=== PATIENT | female | born 1985 | race Caucasian/White ===

== ENCOUNTER 2019-01-16 10:44 | Emergency (ER) | payer OTHER ==
--- NOTE | 2019-01-16 11:14 | RAD ---
RIGHT HAND THREE VIEWS: HISTORY: Injury. Right hand pain. FINDINGS: No acute fracture or dislocation is seen. There is cortical/subcortical focal sclerosis in the dista l radial cortex, which has a benign appearance. POS: [facility]
[2019-01-16 12:31] LABS: Pregnancy Test - Urine (BHCG) Negative (Negative); Pregu Control Background? CLEAR/WHITE (CLR/WHITE); Pregu Control Bar Appear? YES (CONTROL BAR); Specific Gravity 1.007 (1.002-1.036)
[2019-01-16] MEDS ORDERED: Ketorolac Tromethamine 30 MG/ML VIAL ONE (12:54)
== END 2019-01-16 13:20 | disposition home or self-care (01) ==
LOC: ERS 10:44
DX: S52.501A Unspecified fracture of the lower end of right radius, initial encounter for closed fracture (principal); W26.8XXA Contact with other sharp object(s), not elsewhere classified, initial encounter
CPT/HCPCS: 29125; 81025; 96372; J1885